=== PATIENT | male | born 1980 | race Caucasian/White ===

== ENCOUNTER 2018-03-19 16:14 | Emergency (ER) | payer SELFPAY ==
[2018-03-19 16:50] VITALS: BP 157/101
--- NOTE | 2018-03-19 17:00 | ED ---
Skin Complaint - HPI Summary HPI Summary: 37 yr old male with the complaint of red circular rash on left lateral lower leg. Onset over two months ago; he states he does not recall a bit or pulling any thing out of the area. He has a second area of redness and dryness to the right lower anterior ankle area as well. Both areas are itchy, dry, scaly. He has felt well, and not ill. No fever or chills. The second patch of dry, itchy skin on the right leg is present for a month. The patient states he came in to be sure not a lyme type rash. - History of Current Complaint Chief Complaint: UCSkin Time Seen by Provider: 03/19/18 16:47 Stated Complaint: SKIN Pain Intensity: 0 - Allergy/Home Medications Allergies/Adverse Reactions: Allergies Allergy/AdvReac Type Severity Reaction Status Date / Time No Known Allergies Allergy Verified 03/19/18 16:45 PMH/Surg Hx/FS Hx/Imm Hx Infectious Disease History: No Infectious Disease History: Denies: Traveled Outside the [place] in Last 30 Days - Family History Known Family History: Positive: None - Social History Occupation: Employed Full-time Alcohol Use: Daily Substance Use Type: Reports: None Smoking Status (MU): Never Smoked Tobacco Review of Systems Constitutional: Negative Positive: Other - rash skin two separate sites. All Other Systems Reviewed And Are Negative: Yes Physical Exam Triage Information Reviewed: Yes Vital Signs On Initial Exam: Initial Vitals Temp Pulse Resp BP Pulse Ox 99.2 F 108 17 157/101 99 03/19/18 16:40 03/19/18 16:40 03/19/18 16:40 03/19/18 16:40 03/19/18 16:40 Vital Signs Reviewed: Yes Appearance: Positive: Well-Appearing, Obese Skin: Positive: Scaly Skin/Lesions - left lower lateral leg with scaly, irregular raised boarder, red, lichen appearance. about 1 inch in diameter. The right lower anterior ankle is with irregular boarder, scaly, dry skin as well, less chronic appearing than the left side. Head/Face: Positive: Normal Head/Face Inspection Eyes: Positive: EOMI Neck: Positive: Nontender Respiratory/Lung Sounds: Positive: Clear to Auscultation, Breath Sounds Present Cardiovascular: Positive: RRR. Negative: Murmur Abdomen Description: Positive: Nontender Musculoskeletal: Positive: Strength/ROM Intact Neurological: Positive: Sensory/Motor Intact, Alert, Oriented to Person Place, Time, CN Intact II-III Psychiatric: Positive: Normal - Mickey Coma Scale Best Eye Response: 4 - Spontaneous Best Motor Response: 6 - Obeys Commands Best Verbal Response: 5 - Oriented Coma Scale Total: 15 Diagnostics - Vital Signs Vital Signs Temp Pulse Resp BP Pulse Ox 03/19/18 16:40 99.2 F 108 17 157/101 99 - Laboratory Lab Statement: Any lab studies that have been ordered have been reviewed, and results considered in the medical decision making process. Course/Dx - Course Course Of Treatment: 37 yr old with likely tinea corporis. Will Rx with diflucan, and topical cream. FU with PMD for recheck and referral to derm if not better. Patient states he will follow up with PMD. He needs blood pressure rechecked by them. - Diagnoses Provider Diagnoses: Hypertension, Tinea corporis Discharge - Sign-Out/Discharge Documenting (check all that apply): Discharge/Admit/Transfer - Discharge Plan Condition: Good Disposition: HOME Prescriptions: Fluconazole 100 MG TAB* [Diflucan 100 MG TAB*] 200 mg PO WEEKLY #4 tab Patient Education Materials: Tinea Corporis (ED), Hypertension (ED) Referrals: Lilo Maki MD [Primary Care Provider] - 2 Days Additional Instructions: Your blood pressure is high, and you need it rechecked by your primary care doctor in the following 2-3 days. You need your rash rechecked by your primary doctor as well and if it is not better a referral to dermatology in the next 2-3 weeks. Apply miconazole cream to your left and right leg rash twice a day until rash gone. - Billing Disposition and Condition Condition: GOOD Disposition: Home
== END 2018-03-19 17:10 | disposition home or self-care (01) ==
LOC: UCCORT 16:14
DX: B35.4 Tinea corporis (principal); I10 Essential (primary) hypertension
CPT/HCPCS: 99202; G0463